=== PATIENT | male | born 1995 | race Caucasian/White ===

== ENCOUNTER 2018-05-15 12:46 | Emergency (ER) | payer SELFPAY ==
[~2018-05-15] VITALS: Ht 177.8 cm; Wt 89.0 kg
[2018-05-15 12:55] VITALS: BP 126/63
== END 2018-05-15 14:00 | disposition home or self-care (01) ==
LOC: ER 13:48
DX: M54.5 Low back pain (principal); F12.10 Cannabis abuse, uncomplicated
CPT/HCPCS: 99282

== ENCOUNTER 2022-05-27 03:41 | Emergency (ER) | payer MEDICAID ==
[~2022-05-27] VITALS: Ht 182.9 cm; Wt 88.0 kg
[2022-05-27 04:45] VITALS: BP 117/62
== END 2022-05-27 08:23 | disposition left against medical advice (07) ==
LOC: ER 03:41
DX: Z53.21 Procedure and treatment not carried out due to patient leaving prior to being seen by health care provider (principal)

== ENCOUNTER 2025-04-29 02:21 | Emergency (ER) | payer MEDICAID ==
[~2025-04-29] VITALS: Ht 180.3 cm; Wt 82.0 kg
[2025-04-29 02:40] VITALS: O2SAT 100
[2025-04-29] MEDS: TETANUS, DIPHTHERIA, PERTUSSIS VAC/PF 0.5ML (>10YR OLD) IM ONE (04:28)
[2025-04-29] MEDS: LIDOCAINE HCL/PF 1% 10 MG/ML 5ML VIAL INFIL ONE (04:40)
[2025-04-29] MEDS: BACITRACIN ZINC OINT UDPKT TOP ONE (04:41)
[2025-04-29] MEDS ORDERED: NAPR-1176 MT (05:03)
[2025-04-29] MEDS: KETOROLAC 15MG/ML VIAL IM ONE (05:24)
[2025-04-29 05:34] VITALS: BP 128/59; PULSE 76; RESP 14; TEMP 37; O2SAT 100
== END 2025-04-29 05:41 | disposition home or self-care (01) ==
LOC: ER 02:21
DX: S01.21XA Laceration without foreign body of nose, initial encounter (principal); S02.2XXA Fracture of nasal bones, initial encounter for closed fracture; F12.90 Cannabis use, unspecified, uncomplicated; Z79.899 Other long term (current) drug therapy; Z79.1 Long term (current) use of non-steroidal anti-inflammatories (NSAID); Y08.89XA Assault by other specified means, initial encounter; Y93.89 Activity, other specified; Y92.89 Other specified places as the place of occurrence of the external cause; Y99.8 Other external cause status
CPT/HCPCS: 90715; 12013; 90471; 99283; J2003; Z7610; 96372; J1885